=== PATIENT | female | born 1985 | race Caucasian/White ===

== ENCOUNTER → 2017-04-20 | Outpatient (CLI) | payer BC | END | disposition home or self-care (01) | LOC: LAB 12:07 | PROVIDERS: ATTEND Obstetrics & Gynecology | DX: E34.9 Endocrine disorder, unspecified (principal) | CPT/HCPCS: 83001; 83002; 84146; 84443 ==

== ENCOUNTER → 2017-11-16 | Outpatient (CLI) | END | disposition home or self-care (01) ==

== ENCOUNTER → 2018-01-17 | Outpatient (CLI) | END | disposition home or self-care (01) ==

== ENCOUNTER → 2018-05-17 | Outpatient (CLI) | END | disposition home or self-care (01) ==

== ENCOUNTER 2018-05-20 08:06 | Emergency (ER) | END 2018-05-20 10:52 | disposition home or self-care (01) ==

== ENCOUNTER → 2018-09-12 | Outpatient (CLI) | payer BC | END | disposition home or self-care (01) | LOC: RAD 08:18 | PROVIDERS: ATTEND Physician Assistant | DX: Z96.611 Presence of right artificial shoulder joint (principal) ==

== ENCOUNTER → 2018-11-28 | Outpatient (CLI) | payer BC | END | disposition home or self-care (01) | LOC: LAB 10:28 | PROVIDERS: ATTEND Obstetrics & Gynecology | DX: O28.8 Other abnormal findings on antenatal screening of mother (principal) | CPT/HCPCS: 81001; 84144; 84443; 85025; 86592; 86703; 86762; 86803; 86850; 86900; 86901; 87340 ==

== ENCOUNTER → 2018-12-05 | Outpatient (CLI) | payer BC | END | disposition home or self-care (01) | LOC: LAB 09:32 | PROVIDERS: ATTEND Obstetrics & Gynecology | DX: N39.0 Urinary tract infection, site not specified (principal) | CPT/HCPCS: 87086 ==

== ENCOUNTER → 2018-12-24 | Outpatient (CLI) | payer BC | END | disposition home or self-care (01) | LOC: LAB 07:37 | PROVIDERS: ATTEND Obstetrics & Gynecology | DX: Z32.00 Encounter for pregnancy test, result unknown (principal) ==

== ENCOUNTER 2019-01-21 22:40 | Outpatient (CLI) | payer BC ==
[~2019-01-21] VITALS: Ht 160 cm; Wt 80.8 kg
[2019-01-21 22:57] VITALS: Ht 160 cm; Wt 80.8 kg
[2019-01-21] MEDS ORDERED: ASPI-903 PO (23:10)
[2019-01-21] MEDS ORDERED: LABE100T7 PO (23:10)
[2019-01-21] MEDS ORDERED: PREN1TAB91 PO (23:10)
[2019-01-22] MEDS ORDERED: ONDANSETRON 4 MG TAB PO STA (00:23)
[2019-01-22] MEDS ORDERED: CEFTRIAXONE 1 GM/NS 50 ML IVPB SCH (01:00)
[2019-01-22] MEDS ORDERED: SOD CHLORIDE 0.9% 500 ML IV ONE (01:00)
[2019-01-22] MEDS ORDERED: CEFTRIAXONE 1 GM INJ IVPB ONE (01:00)
--- NOTE | 2019-01-22 03:15 | TRIAGE ---
OB Triage Datetime Report Generated by CPN: 01/22/2019 03:15 Datetime: 01/22/2019 01:00 Stage of : OB Triage Temperature Route: Oral Labor Evaluation Frequency: 0 Monitor Mode: External Pattern: Normal: <= 5 Contractions in 10 Minutes Resting Tone [place]: Relaxed Pain Assessment Pain Scale: 3 Pain Presence: Intermittent (Annotations: ON PUSHING ON HER RT FLAK, DONE BY DR LAKESHIA) Pain Type: Dull Pain Goal: 0 Datetime: 01/22/2019 00:00 Stage of : OB Triage Labor Evaluation Frequency: 0 Monitor Mode: External Pattern: Normal: <= 5 Contractions in 10 Minutes Resting Tone [place]: Relaxed Pain Presence: None/Denies Datetime: 01/21/2019 23:03 Time of Arrival: 01/21/2019 22:30 EGA: 19.0 Arrived By: Ambulatory Arrived From: Other Unit in Hospital Chief Complaint: ELEVATED BP AND HR RACING Movement: Present Contractions: Denies/Absent Rupture of Membranes: Denies Vaginal Discharge: Denies Recent Sexual Intercouse: Denies Additional Patient Complaints: IVF Time Provider Notified: 01/21/2019 22:49 Provider Notified: LAKESHIA Initial Plan: DOPPLER, TOCO, CMP, CBC, UA Datetime: 01/21/2019 23:00 Stage of : OB Triage Labor Evaluation Frequency: 0 Monitor Mode: External Pattern: Normal: <= 5 Contractions in 10 Minutes Resting Tone [place]: Relaxed Heart Rate FHR Baseline Rate: 150 Monitor Mode: Doppler Pain Presence: None/Denies Datetime: 01/21/2019 22:53 Vaginal Exam Membrane Status: Intact Datetime: 01/21/2019 22:40 Assessment Type: Triage Maternal Assessment Level of Consciousness: Keenly Alert, Responsive DTR's/Clonus: DTRs 2+; No Clonus Headache: Denies Blurred Vision: No (Annotations: STATED HAD TUNNEL VISON IN , 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
[2019-01-23] MEDS ORDERED: CEPH250S33 PO (18:20)
--- NOTE | 2019-01-25 00:25 | PN ---
Triage Information Date/Time late entry for service rendered on 01/21/1908/11/2254 Reason for visit: elevated blood pressure with nausea Weeks of Gestation 19weeks /Para through IVF Diabetes: none Hypertention: essential Additional information on labetalol 50mg bid BASA Objective BP 142/86 Heart Rate: 150's Contractions: None Exam CVA RT + tenderness Results/Medications Result Diagram: 01/21/19232001/21/192320 Medications IV bolus Rocephin 1gm Imaging Results CVL 3.1 Disposition: Discharge Assessment/Plan A IUP 19w [employer] P discharge home with Rx cephalexin YASMEEN ASHER MD Jan 25, 2019 00:25
== END 2019-01-22 02:35 | disposition home or self-care (01) ==
LOC: L-D 22:40 → OBT 22:40
PROVIDERS: ATTEND Obstetrics & Gynecology
DX: O16.2 Unspecified maternal hypertension, second trimester (principal); Z3A.19 19 weeks gestation of pregnancy
CPT/HCPCS: 36415; 80053; 81001; 84560; 85025; 87086; 96360; 96361; 96366; G0463; J0696; J7040

== ENCOUNTER 2019-01-23 17:18 | Inpatient (IN) | payer BC ==
[~2019-01-23] VITALS: Ht 160 cm; Wt 82.3 kg
[~2019-01-23 17:18] MED LIST: ASPI-903 PO; LABE100T7 PO; PREN1TAB91 PO
[2019-01-23 18:15] VITALS: Ht 160 cm; Wt 82.3 kg
[2019-01-23 18:16] VITALS: BP 140/75; PULSE 98; RESP 18
[2019-01-23] MEDS ORDERED: CEPH250S33 PO (18:20)
[2019-01-23] MEDS ORDERED: LACTATED RINGER'S 1,000 ML IV SCH (19:37)
[2019-01-23] MEDS ORDERED: ONDANSETRON 4 MG INJ IV PRN (20:00)
--- NOTE | 2019-01-23 20:03 | TRIAGE ---
OB Triage Datetime Report Generated by CPN: 01/23/2019 20:02 Datetime: 01/23/2019 19:30 Stage of : OB Triage Datetime: 01/23/2019 19:10 Assessment Type: Triage Level of Consciousness: Keenly Alert, Responsive DTR's/Clonus: DTRs 2+; No Clonus Headache: Denies Blurred Vision: No Respiratory Effort: Unlabored; Regular Rhythm; Equal Expansion Breath Sounds, Left: Clear and Equal Breath Sounds, Right: Clear and Equal Nausea/Vomiting: Denies RUQ Epigastric Pain: Denies Facial Edema: None History of Falling: (0) No Secondary Diagnosis: (0) No Ambulatory Aid: (0) Bedrest/Nurse Assist IV Therapy: (0) No Gait: (0) Normal/Bedrest/Immobile Mental Status: (0) Oriented to Own Ability Fall Score: 0 Fall Risk Score Definition: No Risk: No action required Datetime: 01/23/2019 18:59 Frequency: x1 Duration (sec)2399: 50 Quality: Mild Pattern: Normal: <= 5 Contractions in 10 Minutes Resting Tone [place]: Relaxed Datetime: 01/23/2019 18:01 Assessment Type: Transfer/Discharge Level of Consciousness: Keenly Alert, Responsive DTR's/Clonus: DTRs 2+; No Clonus Headache: Denies Blurred Vision: No Respiratory Effort: Unlabored; Regular Rhythm; Equal Expansion Breath Sounds, Left: Clear and Equal Breath Sounds, Right: Clear and Equal Nausea/Vomiting: Denies RUQ Epigastric Pain: Denies Lower Extremities Edema: None Degree: None Upper Extremities Edema: None Degree: None Facial Edema: None History of Falling: (0) No Secondary Diagnosis: (0) No Ambulatory Aid: (0) Bedrest/Nurse Assist IV Therapy: (0) No Gait: (0) Normal/Bedrest/Immobile Mental Status: (0) Oriented to Own Ability Fall Score: 0 Fall Risk Score Definition: No Risk: No action required Datetime: 01/23/2019 18:00 Time of Arrival: 01/23/2019 17:05 EGA: 19.2 Arrived By: Ambulatory Arrived From: Home Chief Complaint: C/O cramping for 5hrs, also c/o lower back pain Movement: Present Rupture of Membranes: Denies Vaginal Bleeding: None Vaginal Discharge: Denies Recent Sexual Intercouse: Denies Abdominal Trauma: Not Applicable Patient Complaints: Cramping Time Provider Notified: 01/23/2019 18:11 Provider Notified: Initial Plan: r/o ptl Datetime: 01/23/2019 17:56 Comments: FHR 145 BY US
[2019-01-23] MEDS ORDERED: ASPIRIN 81 MG TAB PO SCH (21:00)
[2019-01-23] MEDS: LABETALOL 100 MG TAB PO SCH (21:12)
[2019-01-23] MEDS: DOCUSATE SODIUM 100 MG CAP PO SCH (21:14)
[2019-01-23] MEDS: CEFTRIAXONE 1 GM/50 ML (PMX) 50 ML IVPB SCH (21:15)
[2019-01-24] MEDS ORDERED: SOD CHLORIDE 0.9% 1,000 ML IV SCH (05:00)
[2019-01-24] MEDS: DOCUSATE SODIUM 100 MG CAP PO SCH (08:28)
[2019-01-24] MEDS: LABETALOL 100 MG TAB PO SCH (08:28)
[2019-01-24] MEDS ORDERED: PRENATAL VITAMIN PO SCH (09:00)
[2019-01-24] MEDS ORDERED: ASPIRIN 81 MG TAB PO SCH (09:00)
--- NOTE | 2019-01-24 15:59 | HP ---
Date/Time of Note Date/Time of Note DATE: 01/24/19 TIME: 15:44 OB - History Hx of Present Free Text/Dictation late entry for the service was rendered on 01/23/19 33 y.o primigravida LARY 06/17/19 here at 19w2d with c/o pelvic cramping pain . She was seen at triage on monday which was 2days ago sent home after IV bolus with Rocephin x1 dose and PO Rx cephalexin 500mg Q 6hrs #28 U/A was not significant but mild CVA tenderness with nausea without any other subjective sxs She does have mild nausea and tenderness on Rt CVA which is less than first time CVL 3.1 no Uc's felt but c/o cramping pain She was told cervix was 2.3/ 3.0 by her OB at 18weeks urine culture which was sent on monday appear to be contaminated. admitted for IV antibiotics with hydration till clinical symptoms alleviated. Past Family/Social History * Past Medical, Surgical, Family and Obstetric Histories reviewed from chart. OB Admission Exam Vital Signs Vital Signs Vital Signs Date Temp Pulse Resp B/P (MAP) Pulse Ox O2 O2 Flow FiO2 Time Delivery Rate 01/23/19 98.3 98 18 140/75 18:16 (96) Last 72 hours Lab Results CBC & BMP 01/23/19 20:27 Liver Function Test 01/23/19 20:27 Alanine Aminotransferase (ALT/SGPT) 31 Albumin 3.9 Alkaline Phosphatase 83 Aspartate Amino Transf (AST/SGOT) 18 Direct Bilirubin 0.00 Total Protein 7.0 YASMEEN ASHER MD Jan 24, 2019 15:58
[2019-01-24] MEDS: CEFTRIAXONE 1 GM/50 ML (PMX) 50 ML IVPB SCH (16:58)
--- NOTE | 2019-01-24 18:01 | DS ---
Date/Time of Note Date/Time of Note DATE: 01/24/19 TIME: 17:58 Obstetrical Discharge Record Final Diagnosis Final Diagnosis: not delivered Other Final Diagnosis Acute pyelonephritis Complications Other (acute pyelonephritis) Augmentation: No Induction: No Rupture of Membranes: No Condition on Discharge Physical Assessment Last Vitals: VSS afebrile CVA neg for tenderness Voiding: Yes Breast: Soft, non-tender Fundus: Other () Abdomen and Incision: soft no tenderness CVA neg for tenderness Episiotomy: n/a Calf Tenderness: No Patient Condition: Stable YASMEEN ASHER MD Jan 24, 2019 18:01
--- NOTE | 2019-01-24 18:35 | PD.PPDC ---
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
== END 2019-01-24 18:00 | disposition home or self-care (01) | DRG 833 ==
LOC: OBT 17:18 → L-D 17:20 → OBT 19:30 → L-D 19:30 → PP1 22:18
PROVIDERS: ADMIT Obstetrics & Gynecology; ATTEND Obstetrics & Gynecology
DX: O23.02 Infections of kidney in pregnancy, second trimester (principal); Z3A.19 19 weeks gestation of pregnancy
CPT/HCPCS: 76817; 80053; 85025; G0463; J0696; J7030; J7120

== ENCOUNTER → 2019-02-12 | Outpatient (CLI) | payer BC ==
[~2019-02-12] MED LIST changes: +CEPH250S33 PO
== END | disposition home or self-care (01) ==
LOC: LAB 11:10
PROVIDERS: ATTEND Obstetrics & Gynecology
DX: O13.2 Gestational [pregnancy-induced] hypertension without significant proteinuria, second trimester (principal)
CPT/HCPCS: 87086

== ENCOUNTER 2019-02-18 18:21 | Outpatient (CLI) | payer BC ==
[~2019-02-18] VITALS: Ht 160 cm; Wt 83.0 kg
[~2019-02-18 18:21] MED LIST changes: +NITR-58 PO; +RANI75TA13 PO
[2019-02-18 19:04] VITALS: Ht 160 cm; Wt 83.0 kg
[2019-02-18 19:35] VITALS: BP 140/81; PULSE 100; RESP 16
[2019-02-18] MEDS ORDERED: ONDANSETRON 4 MG INJ IV STA (19:37)
[2019-02-18] MEDS ORDERED: SOD CHLORIDE 0.9% 1,000 ML IV SCH (20:00)
[2019-02-18] MEDS ORDERED: SOD CHLORIDE 0.9% 1,000 ML IV ONE (20:00)
[2019-02-18] MEDS ORDERED: CEFTRIAXONE 1 GM/50 ML (PMX) 50 ML IVPB ONE (20:00)
--- NOTE | 2019-02-18 23:21 | PN ---
Triage Information Date/Time February 18, 2019 Reason for visit: Abd/pelvic pain Weeks of Gestation right CVA tenderness /Para 1/0 Diabetes: none Hypertention: induced (On Labetolol 50 mg TID) Additional information Pt had a previous urinary tract infection and her right back started to hurt, Her usine became cloudy despite lots of fluids , she became very nauseous and overall was not feeling well so I sent her to OB triage for IV hydration and IV Rocephin. Objective Vital Signs Date Temp Pulse Resp B/P (MAP) Pulse Ox O2 O2 Flow FiO2 Time Delivery Rate 02/18/19 98.5 100 16 140/81 Room Air 19:35 (100) Heart Rate: 150's Contractions: None Exam Trace right CVAT. Results/Medications Result Diagram: 02/18/192034 Results 24 hrs Laboratory Tests Test 02/18/19 19:15 02/18/19 20:35 Urine Color YELLOW Urine Clarity CLOUDY A Urine pH 8.0 Urine Specific [place] 1.012 Urine Ketones NEGATIVE Urine Nitrite NEGATIVE Urine Bilirubin NEGATIVE Urine Urobilinogen NEGATIVE Urine Leukocyte Esterase TRACE A Urine Microscopic RBC 3 Urine Microscopic WBC 5 Urine Amorphous Crystals MANY A Urine Bacteria FEW A Urine Hemoglobin NEGATIVE Urine Glucose NEGATIVE Urine Total Protein NEGATIVE White Blood Count 12.2 H Red Blood Count 4.29 Hemoglobin 12.3 Hematocrit 36.6 L Mean Corpuscular Volume 85.3 Mean Corpuscular Hemoglobin 28.7 L Mean Corpuscular Hemoglobin Concent 33.6 Red Cell Distribution Width 13.8 Platelet Count 281 Mean Platelet Volume 8.9 Immature Granulocytes % 0.500 H Neutrophils % 78.9 H Lymphocytes % 13.7 L Monocytes % 5.9 Eosinophils % 0.7 Basophils % 0.3 Nucleated Red Blood Cells % 0.0 Immature Granulocytes # 0.060 H Neutrophils # 9.6 H Lymphocytes # 1.7 Monocytes # 0.7 Eosinophils # 0.1 Basophils # 0.0 Nucleated Red Blood Cells # 0.0 Medications Current Medications Sodium Chloride 1,000 ml @ 125 mls/hr Q8H IV ; Start 02/18/19 at 20:00 Disposition: Discharge Assessment/Plan A: IUP at 23w. Possible early right pyelo. Gestational HTN. P:IV hydration one liter and IV Rocephin. Also gave IV Zofran. Pt feeling infinitely better and is discharged home. Will send a Rx for Cipro to her pharmacy in the AM.To take D-Mannose daily. Will check the urine cx in a few days. JAYNE SAN MD Feb 18, 2019 23:21
--- NOTE | 2019-02-19 01:24 | TRIAGE ---
OB Triage Datetime Report Generated by CPN: 02/19/2019 01:24 Datetime: 02/18/2019 22:41 Stage of : OB Triage Heart Rate FHR Baseline Rate: 150 Monitor Mode: External US Datetime: 02/18/2019 22:26 Pain Assessment Pain Scale: 0 Pain Presence: None/Denies Pain Type: N/A Datetime: 02/18/2019 20:34 Stage of : OB Triage Heart Rate FHR Baseline Rate: 150 Monitor Mode: External US FHR Baseline Changes: No Baseline Change Variability: Moderate 6-25 bpm Accelerations: 10X10 Datetime: 02/18/2019 19:50 Stage of : OB Triage Monitor Mode: External Duration (sec)2399: 10 Quality: Mild Pattern: Normal: <= 5 Contractions in 10 Minutes Resting Tone [place]: Relaxed Heart Rate FHR Baseline Rate: 150 Monitor Mode: External [place] Datetime: 02/18/2019 19:30 Time of Arrival: 02/18/2019 18:14 EGA: 23.0 Arrived By: Ambulatory Arrived From: Home Chief Complaint: w/ hx UTI and CHTN c/o UTI s/s and nausea Movement: Present Contractions: Denies/Absent Rupture of Membranes: Denies Vaginal Discharge: Denies Recent Sexual Intercouse: Denies Abdominal Trauma: Not Applicable Patient Complaints: Cramping Time Provider Notified: 02/18/2019 19:00 Provider Notified: Dr Chakraborty Initial Plan: EFM,NS,ROCPHIN 1GM IVPB,UA,URINE CULTURE,CBC,ZOFRAM 4MG IV Datetime: 02/18/2019 19:12 Stage of : OB Triage Labor Evaluation Frequency: placed Monitor Mode: External Resting Tone [place]: Relaxed Monitor Mode: External US Comments: FHR 150 Pain Assessment Pain Scale: 4 Pain Presence: Constant Pain Type: Pressure Datetime: 01/24/2019 16:55 Pain Presence: None/Denies Datetime: 01/24/2019 11:14 Pain Presence: None/Denies Datetime: 01/24/2019 11:07 Heart Rate FHR Baseline Rate: 140 Comments: aga, 19 weeks Datetime: 01/24/2019 08:24 Assessment Type: Ongoing Assessment Maternal Assessment Level of Consciousness: Keenly Alert, Responsive DTR's/Clonus: DTRs 2+; No Clonus Headache: Denies Blurred Vision: No Respiratory Effort: Unlabored; Regular Rhythm; Equal Expansion Breath Sounds, Left: Clear and Equal Breath Sounds, Right: Clear and Equal Nausea/Vomiting: Denies RUQ Epigastric Pain: Denies Facial Edema: None Fall Risk Assessment History of Falling: (0) No Secondary Diagnosis: (0) No Ambulatory Aid: (0) Bedrest/Nurse Assist IV Therapy: (20) Yes Gait: (0) Normal/Bedrest/Immobile Mental Status: (0) Oriented to Own Ability Fall Score: 20 Fall Risk Score Definition: No Risk: No action required Datetime: 01/24/2019 07:00 Labor Evaluation Frequency: 0 Monitor Mode: External Datetime: 01/24/2019 06:00 Labor Evaluation Frequency: 0 Monitor Mode: External Datetime: 01/24/2019 05:00 Labor Evaluation Frequency: 0 Monitor Mode: External Datetime: 01/24/2019 04:01 Maternal Assessment Level of Consciousness: Not alert, Arousable Temperature Route: Oral Pain Assessment Pain Scale: 0 Datetime: 01/24/2019 04:00 Labor Evaluation Frequency: 0 Monitor Mode: External Datetime: 01/24/2019 03:00 Labor Evaluation Frequency: 0 Monitor Mode: External Datetime: 01/24/2019 02:00 Maternal Assessment Level of Consciousness: Not alert, Arousable Labor Evaluation Frequency: 0 Monitor Mode: External Datetime: 01/24/2019 01:00 Labor Evaluation Frequency: 0 Monitor Mode: External Datetime: 01/24/2019 00:12 Maternal Assessment Level of Consciousness: Keenly Alert, Responsive Temperature Route: Oral Pain Assessment Pain Scale: 0 Datetime: 01/24/2019 00:00 Labor Evaluation Frequency: 0 Monitor Mode: External Datetime: 01/23/2019 23:00 Labor Evaluation Frequency: 0 Monitor Mode: External Datetime: 01/23/2019 22:49 Assessment Type: Admission Assessment Vaginal Bleeding: None Respiratory Effort: Unlabored Breath Sounds, Left: Clear and Equal Breath Sounds, Right: Clear and Equal Nausea/Vomiting: Denies Lower Extremities Edema: None Upper Extremities Edema: None Fall Risk Assessment History of Falling: (0) No IV Therapy: (20) Yes Gait: (0) Normal/Bedrest/Immobile Mental Status: (0) Oriented to Own Ability Pain Assessment Pain Scale: 0 Vaginal Exam Membrane Status: Intact Datetime: 01/23/2019 22:28 Comments: FHR 140s Datetime: 01/23/2019 22:15 Stage of : Antepartum Monitor Mode: External Contraction Comments: DENIES Datetime: 01/23/2019 19:10 Fall Score: 0 Fall Risk Score Definition: No Risk: No action required Datetime: 01/23/2019 18:01 Fall Score: 0 Fall Risk Score Definition: No Risk: No action required Datetime: 01/23/2019 18:00 EGA: 19.2 Datetime: 01/21/2019 23:03 EGA: 19.0 Datetime: 01/21/2019 22:40 Fall Score: 0 Fall Risk Score Definition: No Risk: No action required
== END 2019-02-18 23:30 | disposition home or self-care (01) ==
LOC: OBT 18:21 → L-D 18:23 → OBT 23:30
PROVIDERS: ATTEND Obstetrics & Gynecology
DX: O13.2 Gestational [pregnancy-induced] hypertension without significant proteinuria, second trimester (principal); O23.42 Unspecified infection of urinary tract in pregnancy, second trimester; Z3A.23 23 weeks gestation of pregnancy
CPT/HCPCS: 36415; 81001; 85025; 87086; 96360; 96375; 96376; G0463; J0696; J2405; J7030

== ENCOUNTER → 2019-02-21 | Outpatient (CLI) | payer BC ==
[~2019-02-21] MED LIST changes: -CEPH250S33 PO
== END | disposition home or self-care (01) ==
LOC: LAB 08:58
PROVIDERS: ATTEND Obstetrics & Gynecology
DX: O13.9 Gestational [pregnancy-induced] hypertension without significant proteinuria, unspecified trimester (principal)
CPT/HCPCS: 82565; 82575; 84156

== ENCOUNTER 2019-03-09 07:26 | Inpatient (IN) | payer BC ==
[~2019-03-09] VITALS: Ht 160 cm; Wt 84.7 kg
[~2019-03-09 07:26] MED LIST changes: +RANI-287 PO; -RANI75TA13 PO
[2019-03-09 08:14] VITALS: Ht 160 cm; Wt 84.7 kg
[2019-03-09 08:16] VITALS: BP 133/77; PULSE 76; RESP 20
[2019-03-09] MEDS ORDERED: ACETAMINOPHEN 500 MG TAB PO STA (10:02)
[2019-03-09] MEDS ORDERED: MAGNESIUM SULFATE 4 GM/100 ML 100 ML IV ONE (15:30)
[2019-03-09] MEDS: BETAMET NA PHOS/AC (6 MG/ML) 2 ML INJ SYG IM SCH (15:38)
[2019-03-09] MEDS: LACTATED RINGER'S 1,000 ML IV SCH (15:38)
[2019-03-09] MEDS: MAGNESIUM SULFATE 20 GM/500 ML 500 ML IV SCH (16:51)
[2019-03-09] MEDS: LABETALOL 100 MG TAB PO SCH (21:03)
[2019-03-09] MEDS ORDERED: DIPHENHYDRAMINE 25 MG CAP PO ONE (22:30)
[2019-03-09] MEDS: RANITIDINE 150 MG TAB PO SCH (22:43)
[2019-03-10] MEDS: LACTATED RINGER'S 1,000 ML IV SCH ×2 (02:54→17:08)
[2019-03-10] MEDS: MAGNESIUM SULFATE 20 GM/500 ML 500 ML IV SCH ×3 (02:55→23:18)
[2019-03-10] MEDS ORDERED: PRENATAL VITAMIN PO SCH (09:00)
[2019-03-10] MEDS: RANITIDINE 150 MG TAB PO SCH ×2 (09:13→23:13)
[2019-03-10] MEDS: LABETALOL 100 MG TAB PO SCH ×3 (09:13→20:55)
[2019-03-10] MEDS: FERROUS SULFATE (EC) 325 MG TAB PO SCH (09:13)
[2019-03-10] MEDS ORDERED: AMPICILLIN 2 GM/NS (PMX) 100 ML IVPB ONE (10:00)
[2019-03-10] MEDS: ACETAMINOPHEN 325 MG TAB PO PRN (10:07)
[2019-03-10] MEDS: AMPICILLIN 1 GM/NS (PMX) 50 ML IVPB SCH ×3 (13:58→20:54)
[2019-03-10] MEDS: BETAMET NA PHOS/AC (6 MG/ML) 2 ML INJ SYG IM SCH (15:35)
[2019-03-10] MEDS ORDERED: ASPIRIN 81 MG TAB PO SCH (20:00)
[2019-03-11] MEDS: AMPICILLIN 1 GM/NS (PMX) 50 ML IVPB SCH ×6 (01:11→21:26)
[2019-03-11] MEDS: FERROUS SULFATE (EC) 325 MG TAB PO SCH (08:54)
[2019-03-11] MEDS: RANITIDINE 150 MG TAB PO SCH ×2 (08:55→21:25)
[2019-03-11] MEDS: LABETALOL 100 MG TAB PO SCH ×3 (09:00→21:00)
[2019-03-11] MEDS: LACTATED RINGER'S 1,000 ML IV SCH ×2 (09:18→23:38)
[2019-03-11] MEDS: MAGNESIUM SULFATE 20 GM/500 ML 500 ML IV SCH ×2 (10:23→23:39)
[2019-03-11] MEDS ORDERED: PRENATAL VITAMINS PO SCH (11:00)
[2019-03-11] MEDS ORDERED: DIPHENHYDRAMINE 50 MG INJ IV ONE (18:30)
[2019-03-11] MEDS: DOCUSATE SODIUM 100 MG CAP PO SCH (21:25)
[2019-03-11] MEDS: ASPIRIN 81 MG TAB PO SCH (21:25)
[2019-03-11] MEDS: PATIENT'S OWN MEDICATION PO SCH (21:50)
[2019-03-11] MEDS: DIPHENHYDRAMINE 50 MG INJ IV PRN (22:34)
[2019-03-12] MEDS: AMPICILLIN 1 GM/NS (PMX) 50 ML IVPB SCH ×4 (01:52→13:00)
[2019-03-12] MEDS: MAGNESIUM SULFATE 20 GM/500 ML 500 ML IV SCH (06:32)
[2019-03-12] MEDS: ACETAMINOPHEN 325 MG TAB PO PRN ×2 (06:50→18:46)
[2019-03-12] MEDS: RANITIDINE 150 MG TAB PO SCH ×2 (08:44→22:30)
[2019-03-12] MEDS: FERROUS SULFATE (EC) 325 MG TAB PO SCH (08:44)
[2019-03-12] MEDS: DOCUSATE SODIUM 100 MG CAP PO SCH ×2 (08:44→22:30)
[2019-03-12] MEDS: LABETALOL 100 MG TAB PO SCH (08:45)
[2019-03-12] MEDS: NIFEdipine 10 MG CAP PO SCH ×2 (17:57→23:59)
[2019-03-12] MEDS ORDERED: PATIENT'S OWN MEDICATION PO PRN (22:30)
[2019-03-12] MEDS: ASPIRIN 81 MG TAB PO SCH (22:30)
[2019-03-12] MEDS: PATIENT'S OWN MEDICATION PO SCH (23:55)
[2019-03-12] MEDS: DIPHENHYDRAMINE 50 MG INJ IV PRN (23:58)
[2019-03-13] MEDS: NIFEdipine 10 MG CAP PO SCH ×4 (06:08→23:47)
[2019-03-13] MEDS: RANITIDINE 150 MG TAB PO SCH ×2 (08:45→21:12)
[2019-03-13] MEDS: DOCUSATE SODIUM 100 MG CAP PO SCH ×2 (08:45→21:12)
[2019-03-13] MEDS: PATIENT'S OWN MEDICATION PO SCH (09:00)
[2019-03-13] MEDS: ASPIRIN 81 MG TAB PO SCH (21:12)
[2019-03-14] MEDS: NIFEdipine 10 MG CAP PO SCH ×4 (06:08→23:34)
[2019-03-14] MEDS: PATIENT'S OWN MEDICATION PO SCH (09:00)
[2019-03-14] MEDS: RANITIDINE 150 MG TAB PO SCH ×2 (10:01→21:33)
[2019-03-14] MEDS: DOCUSATE SODIUM 100 MG CAP PO SCH ×2 (10:01→21:33)
[2019-03-14] MEDS: ASPIRIN 81 MG TAB PO SCH (21:33)
[2019-03-15] MEDS: NIFEdipine 10 MG CAP PO SCH ×3 (05:57→18:23)
[2019-03-15] MEDS: RANITIDINE 150 MG TAB PO SCH ×2 (09:51→22:09)
[2019-03-15] MEDS: DOCUSATE SODIUM 100 MG CAP PO SCH ×2 (09:51→22:09)
[2019-03-15] MEDS: PATIENT'S OWN MEDICATION PO SCH (09:52)
[2019-03-15] MEDS: ASPIRIN 81 MG TAB PO SCH (22:09)
[2019-03-16] MEDS: NIFEdipine 10 MG CAP PO SCH ×3 (00:10→13:53)
[2019-03-16] MEDS: RANITIDINE 150 MG TAB PO SCH ×2 (13:54→21:11)
[2019-03-16] MEDS: DOCUSATE SODIUM 100 MG CAP PO SCH ×2 (13:54→21:11)
[2019-03-16] MEDS: PATIENT'S OWN MEDICATION PO SCH (13:54)
[2019-03-16] MEDS ORDERED: CYCLOBENZAPRINE 10 MG TAB PO ONE (16:30)
[2019-03-16] MEDS: ASPIRIN 81 MG TAB PO SCH (21:11)
[2019-03-16] MEDS ORDERED: LABETALOL 100 MG TAB PO PRN (21:30)
[2019-03-17] MEDS: DOCUSATE SODIUM 100 MG CAP PO SCH ×2 (09:08→20:59)
[2019-03-17] MEDS: RANITIDINE 150 MG TAB PO SCH ×2 (09:08→20:59)
[2019-03-17] MEDS: PATIENT'S OWN MEDICATION PO SCH (09:10)
[2019-03-17] MEDS: ASPIRIN 81 MG TAB PO SCH (20:59)
[2019-03-18] MEDS: PATIENT'S OWN MEDICATION PO SCH (09:00)
[2019-03-18] MEDS: DOCUSATE SODIUM 100 MG CAP PO SCH ×2 (09:19→20:55)
[2019-03-18] MEDS: RANITIDINE 150 MG TAB PO SCH ×2 (09:19→20:55)
[2019-03-18] MEDS: ACETAMINOPHEN 325 MG TAB PO PRN (18:39)
[2019-03-18] MEDS: ASPIRIN 81 MG TAB PO SCH (20:55)
[2019-03-19] MEDS: DOCUSATE SODIUM 100 MG CAP PO SCH ×2 (09:05→21:24)
[2019-03-19] MEDS: RANITIDINE 150 MG TAB PO SCH ×2 (09:06→21:24)
[2019-03-19] MEDS: PATIENT'S OWN MEDICATION PO SCH (09:07)
[2019-03-19] MEDS: ASPIRIN 81 MG TAB PO SCH (21:24)
[2019-03-20] MEDS: RANITIDINE 150 MG TAB PO SCH ×2 (09:28→21:39)
[2019-03-20] MEDS: DOCUSATE SODIUM 100 MG CAP PO SCH ×2 (09:28→21:39)
[2019-03-20] MEDS: PATIENT'S OWN MEDICATION PO SCH (09:29)
[2019-03-20] MEDS: ASPIRIN 81 MG TAB PO SCH (21:39)
[2019-03-21] MEDS: RANITIDINE 150 MG TAB PO SCH ×2 (09:36→21:33)
[2019-03-21] MEDS: PATIENT'S OWN MEDICATION PO SCH (09:36)
[2019-03-21] MEDS: DOCUSATE SODIUM 100 MG CAP PO SCH ×2 (09:36→21:33)
[2019-03-21] MEDS: ASPIRIN 81 MG TAB PO SCH (21:33)
[2019-03-22] MEDS: DOCUSATE SODIUM 100 MG CAP PO SCH ×2 (09:27→21:20)
[2019-03-22] MEDS: PATIENT'S OWN MEDICATION PO SCH (09:27)
[2019-03-22] MEDS: RANITIDINE 150 MG TAB PO SCH ×2 (09:27→21:20)
[2019-03-22] MEDS: PHENAZOPYRIDINE 200 MG TAB PO SCH ×2 (16:07→21:20)
[2019-03-22] MEDS: ASPIRIN 81 MG TAB PO SCH (21:20)
[2019-03-23] MEDS: PATIENT'S OWN MEDICATION PO SCH (09:48)
[2019-03-23] MEDS: DOCUSATE SODIUM 100 MG CAP PO SCH ×2 (09:49→21:19)
[2019-03-23] MEDS: RANITIDINE 150 MG TAB PO SCH ×2 (09:49→21:19)
[2019-03-23] MEDS: PHENAZOPYRIDINE 200 MG TAB PO SCH ×2 (09:49→14:26)
[2019-03-23] MEDS ORDERED: PHENAZOPYRIDINE 200 MG TAB PO PRN (17:00)
[2019-03-23] MEDS: ASPIRIN 81 MG TAB PO SCH (21:19)
[2019-03-24] MEDS: RANITIDINE 150 MG TAB PO SCH ×2 (08:45→21:23)
[2019-03-24] MEDS: PATIENT'S OWN MEDICATION PO SCH (08:45)
[2019-03-24] MEDS: DOCUSATE SODIUM 100 MG CAP PO SCH ×2 (08:45→21:23)
[2019-03-24] MEDS: ASPIRIN 81 MG TAB PO SCH (21:23)
[2019-03-25] MEDS: PATIENT'S OWN MEDICATION PO SCH (08:39)
[2019-03-25] MEDS: DOCUSATE SODIUM 100 MG CAP PO SCH ×2 (08:39→21:21)
[2019-03-25] MEDS: RANITIDINE 150 MG TAB PO SCH ×2 (08:39→21:21)
[2019-03-25] MEDS: ASPIRIN 81 MG TAB PO SCH (21:21)
[2019-03-26] MEDS: DOCUSATE SODIUM 100 MG CAP PO SCH ×2 (09:23→21:31)
[2019-03-26] MEDS: RANITIDINE 150 MG TAB PO SCH ×2 (09:23→21:32)
[2019-03-26] MEDS: PATIENT'S OWN MEDICATION PO SCH (09:23)
[2019-03-26] MEDS: ACETAMINOPHEN 325 MG TAB PO PRN (16:04)
[2019-03-26] MEDS: ASPIRIN 81 MG TAB PO SCH (21:31)
[2019-03-27] MEDS: RANITIDINE 150 MG TAB PO SCH ×2 (08:55→21:16)
[2019-03-27] MEDS: DOCUSATE SODIUM 100 MG CAP PO SCH ×2 (08:55→21:16)
[2019-03-27] MEDS: PATIENT'S OWN MEDICATION PO SCH (08:56)
[2019-03-27] MEDS: ASPIRIN 81 MG TAB PO SCH (21:16)
[2019-03-28] MEDS: RANITIDINE 150 MG TAB PO SCH ×2 (09:46→21:36)
[2019-03-28] MEDS: PATIENT'S OWN MEDICATION PO SCH (09:46)
[2019-03-28] MEDS: DOCUSATE SODIUM 100 MG CAP PO SCH ×2 (09:46→21:36)
[2019-03-28] MEDS: ASPIRIN 81 MG TAB PO SCH (21:36)
[2019-03-29] MEDS: PATIENT'S OWN MEDICATION PO SCH (10:00)
[2019-03-29] MEDS: DOCUSATE SODIUM 100 MG CAP PO SCH ×2 (10:00→20:51)
[2019-03-29] MEDS: RANITIDINE 150 MG TAB PO SCH ×2 (10:00→20:51)
[2019-03-29] MEDS: ACETAMINOPHEN 325 MG TAB PO PRN (17:50)
[2019-03-29] MEDS: ASPIRIN 81 MG TAB PO SCH (20:51)
[2019-03-30] MEDS: RANITIDINE 150 MG TAB PO SCH ×2 (09:33→20:40)
[2019-03-30] MEDS: PATIENT'S OWN MEDICATION PO SCH (09:33)
[2019-03-30] MEDS: DOCUSATE SODIUM 100 MG CAP PO SCH ×2 (09:33→20:40)
[2019-03-30] MEDS: ASPIRIN 81 MG TAB PO SCH (20:40)
[2019-03-31] MEDS: RANITIDINE 150 MG TAB PO SCH ×2 (09:37→21:44)
[2019-03-31] MEDS: DOCUSATE SODIUM 100 MG CAP PO SCH ×2 (09:37→21:44)
[2019-03-31] MEDS: PATIENT'S OWN MEDICATION PO SCH (09:38)
[2019-03-31] MEDS: ASPIRIN 81 MG TAB PO SCH (21:44)
[2019-03-31] MEDS: ACETAMINOPHEN 325 MG TAB PO PRN (21:46)
[2019-03-31] MEDS ORDERED: CYCLOBENZAPRINE 10 MG TAB PO ONE (22:30)
[2019-04-01] MEDS: DOCUSATE SODIUM 100 MG CAP PO SCH ×2 (09:56→21:36)
[2019-04-01] MEDS: PATIENT'S OWN MEDICATION PO SCH (09:56)
[2019-04-01] MEDS: RANITIDINE 150 MG TAB PO SCH ×2 (09:56→21:36)
[2019-04-01] MEDS: ACETAMINOPHEN 325 MG TAB PO PRN (14:46)
[2019-04-01] MEDS: ASPIRIN 81 MG TAB PO SCH (21:36)
[2019-04-02] MEDS: RANITIDINE 150 MG TAB PO SCH ×2 (08:32→23:06)
[2019-04-02] MEDS: DOCUSATE SODIUM 100 MG CAP PO SCH ×2 (08:32→22:16)
[2019-04-02] MEDS: PATIENT'S OWN MEDICATION PO SCH (08:33)
[2019-04-02] MEDS ORDERED: LACTATED RINGER'S 1,000 ML IV PRN (19:29)
[2019-04-02] MEDS ORDERED: AMPICILLIN 2 GM/NS (PMX) 100 ML IV ONE (19:30)
[2019-04-02] MEDS ORDERED: MISOPROSTOL 200 MCG TAB PR PRN (19:30)
[2019-04-02] MEDS ORDERED: OXYTOCIN 30 UNITS/LR 500 ML IV SCH ×2 (19:30)
[2019-04-02] MEDS ORDERED: OXYTOCIN 30 UNITS/LR 500 ML IV PRN (19:30)
[2019-04-02] MEDS ORDERED: IBUPROFEN 600 MG TAB PO PRN (19:30)
[2019-04-02] MEDS ORDERED: METHYLERGONOVINE 0.2 MG INJ IM PRN (19:30)
[2019-04-02] MEDS ORDERED: LIDOCAINE 1% (MPF) 30 ML INJ INJ PRN (19:30)
[2019-04-02] MEDS ORDERED: CARBOPROST 250 MCG INJ IM PRN (19:30)
[2019-04-02] MEDS ORDERED: BETAMET NA PHOS/AC (6 MG/ML) 2 ML INJ SYG IM SCH (20:00)
[2019-04-02] MEDS: LACTATED RINGER'S 1,000 ML IV SCH (21:18)
[2019-04-02] MEDS: MAGNESIUM SULFATE 40GM/1000ML 1,000 ML IV SCH (21:40)
[2019-04-02] MEDS: BETAMET NA PHOS/AC (6 MG/ML) 2 ML INJ SYG IM SCH (21:40)
[2019-04-02] MEDS: AZITHROMYCIN 500MG/NS (PMX) 250 ML IVPB SCH (22:51)
[2019-04-02] MEDS: ASPIRIN 81 MG TAB PO SCH (23:06)
[2019-04-03] MEDS: AMPICILLIN 1 GM/NS (PMX) 50 ML IV SCH ×7 (01:21→21:57)
[2019-04-03] MEDS: DOCUSATE SODIUM 100 MG CAP PO SCH ×2 (08:36→21:00)
[2019-04-03] MEDS: PATIENT'S OWN MEDICATION PO SCH (08:36)
[2019-04-03] MEDS: RANITIDINE 150 MG TAB PO SCH ×2 (08:36→21:00)
[2019-04-03] MEDS: ACETAMINOPHEN 325 MG TAB PO PRN (09:10)
[2019-04-03] MEDS: BETAMET NA PHOS/AC (6 MG/ML) 2 ML INJ SYG IM SCH (09:59)
[2019-04-03] MEDS: LACTATED RINGER'S 1,000 ML IV SCH ×2 (11:05→11:29)
[2019-04-03] MEDS: MAGNESIUM SULFATE 40GM/1000ML 1,000 ML IV SCH (17:37)
[2019-04-03] MEDS: AZITHROMYCIN 500MG/NS (PMX) 250 ML IVPB SCH (20:13)
[2019-04-04] MEDS: ASPIRIN 81 MG TAB PO SCH ×2 (03:19→23:29)
[2019-04-04] MEDS: LACTATED RINGER'S 1,000 ML IV SCH ×4 (03:23→20:00)
[2019-04-04] MEDS: AMPICILLIN 1 GM/NS (PMX) 50 ML IV SCH ×4 (03:30→16:38)
[2019-04-04] MEDS: DOCUSATE SODIUM 100 MG CAP PO SCH ×2 (09:47→23:29)
[2019-04-04] MEDS: RANITIDINE 150 MG TAB PO SCH ×2 (12:40→23:29)
[2019-04-04] MEDS: MAGNESIUM SULFATE 40GM/1000ML 1,000 ML IV SCH (12:46)
[2019-04-04] MEDS: PATIENT'S OWN MEDICATION PO SCH (20:00)
[2019-04-05] MEDS: LACTATED RINGER'S 1,000 ML IV SCH ×3 (02:19→18:58)
[2019-04-05] MEDS: BUTORPHANOL 2 MG INJ IV PRN ×2 (02:46→08:15)
[2019-04-05] MEDS: AMOXICILLIN 500 MG CAP PO SCH ×3 (05:39→22:03)
[2019-04-05] MEDS: RANITIDINE 150 MG TAB PO SCH ×2 (09:00→21:00)
[2019-04-05] MEDS: ACETAMINOPHEN 325 MG TAB PO PRN ×2 (11:55→20:26)
[2019-04-05] MEDS: DOCUSATE SODIUM 100 MG CAP PO SCH ×2 (11:56→21:00)
[2019-04-05] MEDS ORDERED: morphine 4 MG/ML VIAL IV STA (20:30)
[2019-04-05] MEDS: ASPIRIN 81 MG TAB PO SCH (21:00)
[2019-04-06] MEDS: BUTORPHANOL 2 MG INJ IV PRN ×4 (02:25→12:33)
[2019-04-06] MEDS ORDERED: LACTATED RINGER'S 1,000 ML IV PRN (03:01)
[2019-04-06] MEDS: LACTATED RINGER'S 1,000 ML IV SCH ×4 (03:05→22:45)
[2019-04-06] MEDS: AMOXICILLIN 500 MG CAP PO SCH (06:02)
[2019-04-06] MEDS ORDERED: BUTORPHANOL 2 MG INJ IV PRN (09:00)
[2019-04-06] MEDS: DOCUSATE SODIUM 100 MG CAP PO SCH ×2 (09:00→15:40)
[2019-04-06] MEDS: PATIENT'S OWN MEDICATION PO SCH (09:00)
[2019-04-06] MEDS: RANITIDINE 150 MG TAB PO SCH ×2 (09:00→21:49)
[2019-04-06] MEDS: ERYTHROMYCIN BASE (DR) 250 MG CAP PO SCH ×2 (13:51→23:52)
[2019-04-06] MEDS: AMOXICILLIN (50 MG/ML PO SYG) PO SCH ×2 (13:51→22:45)
[2019-04-06] MEDS ORDERED: AMOXICILLIN 250 MG CAP PO SCH (14:00)
[2019-04-06] MEDS ORDERED: OXYTOCIN 30 UNITS/LR 500 ML IV PRN (15:30)
[2019-04-06] MEDS ORDERED: CARBOPROST 250 MCG INJ IM PRN (15:30)
[2019-04-06] MEDS ORDERED: METHYLERGONOVINE 0.2 MG INJ IM PRN (15:30)
[2019-04-06] MEDS ORDERED: MISOPROSTOL 200 MCG TAB PR PRN (15:30)
[2019-04-06] MEDS ORDERED: OXYTOCIN 30 UNITS/LR 500 ML IV SCH ×2 (15:30)
[2019-04-06] MEDS ORDERED: LIDOCAINE 1% (MPF) 30 ML INJ INJ PRN (15:30)
[2019-04-06] MEDS ORDERED: FENTAnyl 2MCG/ML-ROPIV 0.2% 100 ML ONE (17:01)
[2019-04-06] MEDS ORDERED: DIPHENHYDRAMINE 50 MG INJ IV PRN (17:30)
[2019-04-06] MEDS ORDERED: HYDROmorphONE 0.5 MG/0.5 ML SYG IV PRN ×2 (17:30)
[2019-04-06] MEDS ORDERED: KETOROLAC 30 MG INJ IV PRN (17:30)
[2019-04-06] MEDS ORDERED: ONDANSETRON 4 MG INJ IV PRN (17:30)
[2019-04-06] MEDS ORDERED: TRIMETHOBENZAMIDE 100 MG/ML VIAL IM PRN (17:30)
[2019-04-06] MEDS ORDERED: NALOXONE (0.4 MG/ML) INJ IV PRN (17:30)
[2019-04-06] MEDS: ASPIRIN 81 MG TAB PO SCH (21:49)
[2019-04-07] MEDS: FENTAnyl 2MCG/ML-ROPIV 0.2% 100 ML BAG EPI SCH ×2 (01:20→10:49)
[2019-04-07] MEDS: ACETAMINOPHEN 325 MG TAB PO PRN ×2 (03:57→11:50)
[2019-04-07] MEDS: ERYTHROMYCIN BASE (DR) 250 MG CAP PO SCH ×2 (05:42→11:50)
[2019-04-07] MEDS: AMOXICILLIN (50 MG/ML PO SYG) PO SCH (05:43)
[2019-04-07] MEDS: LACTATED RINGER'S 1,000 ML IV SCH (07:29)
[2019-04-07] MEDS ORDERED: MINERAL OIL LIGHT 10 ML VIAL TOP ONE (16:30)
[2019-04-07] MEDS: IBUPROFEN 600 MG TAB PO PRN ×2 (17:06→17:11)
[2019-04-07] MEDS ORDERED: LANOLIN HPA 1 PKT TOP PRN (18:30)
[2019-04-07] MEDS: IBUPROFEN 600 MG TAB PO SCH (18:30)
[2019-04-07] MEDS ORDERED: MISOPROSTOL 200 MCG TAB PR PRN (18:30)
[2019-04-07] MEDS ORDERED: ZOLPIDEM 5 MG TAB PO PRN (18:30)
[2019-04-07] MEDS ORDERED: OXYTOCIN 30 UNITS/LR 500 ML IV PRN (18:30)
[2019-04-07] MEDS ORDERED: CARBOPROST 250 MCG INJ IM PRN (18:30)
[2019-04-07] MEDS ORDERED: WITCH HAZEL/GLYCERIN PAD PR PRN (18:30)
[2019-04-07] MEDS ORDERED: BENZOCAINE 20% 56 ML SPRAY TOP PRN (18:30)
[2019-04-07] MEDS ORDERED: METHYLERGONOVINE 0.2 MG INJ IM PRN (18:30)
[2019-04-07] MEDS ORDERED: OXYCODONE/ASPIRIN (4.88/325) TAB PO PRN ×2 (18:30)
[2019-04-07 18:53] VITALS: BP 135/83; PULSE 107; RESP 17
[2019-04-07 20:00] VITALS: BP 142/72; PULSE 97; RESP 18
[2019-04-07] MEDS: SENNA/DOCUSATE NA (8.6MG/50MG) TAB PO SCH (22:35)
[2019-04-08] MEDS: IBUPROFEN 600 MG TAB PO SCH ×4 (00:39→17:31)
[2019-04-08 03:45] VITALS: BP 105/59; PULSE 80; RESP 18
[2019-04-08 08:00] VITALS: BP 137/74; PULSE 91; RESP 18
[2019-04-08] MEDS: SENNA/DOCUSATE NA (8.6MG/50MG) TAB PO SCH ×2 (09:00→21:00)
[2019-04-08] MEDS ORDERED: ONDANSETRON 4 MG TAB PO PRN (11:30)
[2019-04-08 15:43] VITALS: BP 126/61; PULSE 82; RESP 18
[2019-04-08 20:00] VITALS: BP 109/61; PULSE 70; RESP 20
[2019-04-09] MEDS: IBUPROFEN 600 MG TAB PO SCH ×3 (00:10→09:35)
[2019-04-09 08:00] VITALS: BP 135/76; PULSE 97; RESP 18
[2019-04-09] MEDS: SENNA/DOCUSATE NA (8.6MG/50MG) TAB PO SCH (09:00)
[2019-04-09] MEDS ORDERED: DIPHTH/TET/ACEL PERTUSS (ADULT) 0.5 ML VIAL IM* ONE (09:00)
== END 2019-04-09 18:05 | disposition home or self-care (01) | DRG 806 ==
LOC: L-D 07:26 → OBT 07:26 → L-D 13:45 → PP1 03-10 17:06 → L-D 04-02 20:51 → PP1 04-07 18:41
PROVIDERS: ADMIT Obstetrics & Gynecology; ATTEND Obstetrics & Gynecology
PROC: 10E0XZZ Delivery of Products of Conception, External Approach (ICD-10-PCS; principal; 2019-04-07)
PROC: 3E033VJ Introduction of Other Hormone into Peripheral Vein, Percutaneous Approach (ICD-10-PCS; 2019-04-07)
DX: O60.12X0 Preterm labor second trimester with preterm delivery second trimester, not applicable or unspecified (principal); O26.873 Cervical shortening, third trimester; O69.81X0 Labor and delivery complicated by cord around neck, without compression, not applicable or unspecified; O13.4 Gestational [pregnancy-induced] hypertension without significant proteinuria, complicating childbirth; Z3A.29 29 weeks gestation of pregnancy; Z37.0 Single live birth
CPT/HCPCS: 62322; 76815; 76817; 76818; 76820; 80053; 81001; 82731; 82950; 83735; 84112; 84560; 85025; 85610; 85730; 86592; 86850; 86900; 86901; 87070; 87081; 87086; 87210; 88307; 90715; 99464; G0463; J0290; J0456; J0595; J0702; J1200; J2270; J2405; J2590; J3010; J3475; J7120